=== PATIENT | male | born 1935 | race Caucasian/White ===

== ENCOUNTER 2022-04-16 09:02 | Day surgery (SDC) | payer BC, SELFPAY ==
[2022-04-16] VITALS (8 sets, daily range): BP systolic 139–166; BP diastolic 63–76; PULSE 82–90; RESP 14–16; TEMP 37.1–37.4; O2SAT 99–100; BMI 44.3
--- NOTE | 2022-04-16 11:42 | P.ENTPROC_ITS ---
Procedure Note Date of procedure: 04/16/22 Procedure: Preoperative diagnosis melanoma left earlobe see previous pathology report Postoperative diagnosis same Procedure re-excision of biopsy site with greater than 1 cm margins of left earlobe Patient was brought to the operating room prepped and draped in usual fashion. The previous biopsy site was marked and then margins 14 mm around it were then marked. This area was infiltrated 1% like the cane [id number] adrenaline. The majority of the earlobe was excised. Bleeding was controlled with needlepoint cautery. The subcutaneous layer was closed with interrupted 4-0 chromic sutures. Five 0 interrupted and running plain gut sutures were used in the ski n. Cosmetic appearance and procedure was excellent. A Band-Aid was applied the patient procedure was taken to recovery in satisfactory condition. Blood loss less than 10 mL. There were no complications Surgeon: Parish Lomas MD
--- NOTE | 2022-04-16 11:50 | SUR.PHASEII ---
Pt and caregiver verbalized readiness to be discharged and understanding of discharge instructions.
== END 2022-04-16 11:33 | disposition home or self-care (01) ==
PROVIDERS: PCP Family Medicine; Visit Provider Otolaryngology
PROC: (CPT 11646; principal; 2022-04-16 10:15)
DX: C43.22 Malignant melanoma of left ear and external auricular canal (principal)
CPT/HCPCS: 11646; 12051; 88305